=== PATIENT | male | born 1960 | race Caucasian/White ===

== ENCOUNTER 2017-11-25 10:50 | Emergency (ER) | payer SELFPAY ==
[2017-11-25] MEDS ORDERED: VANCOMYCIN PER PHARMACY MC ×2 (11:15)
[2017-11-25 11:32] LABS: ADD MAN DIFF? NO
[2017-11-25 11:35] LABS: BASO # 0.1 x10^3/uL (0.0-0.2); BASO % 1 % (0-3); EOS # 0.1 x10^3/uL (0.0-0.7); EOS % 1 % (0-3); HEMATOCRIT 44.2 % (39.0-53.0); HEMOGLOBIN 14.8 g/dL (13.0-17.5); LYMPH # 0.9 x10^3/uL (1.0-4.8); LYMPH % 7 % (24-48); MEAN CORPUSCULAR HEMOGLOBIN 31 pg (25-35); MEAN CORPUSCULAR HGB CONC 34 g/dL (31-37); MEAN CORPUSCULAR VOLUME 93 fL (79-100); MONO # 1.8 x10^3/uL (0.0-1.1); MONO % 14 % (0-9); NEUT # 10.2 x10^3uL (1.8-7.7); NEUT % 77 % (31-73); PLATELET COUNT 269 x10^3/uL (140-400); RED BLOOD COUNT 4.76 x10^6/uL (4.30-5.70); RED CELL DISTRIBUTION WIDTH 14.5 % (11.5-14.5); WHITE BLOOD COUNT 13.2 x10^3/uL (4.0-11.0)
[2017-11-25 11:50] LABS: ANION GAP 6 (6-14); BLOOD UREA NITROGEN 13 mg/dL (8-26); BUN/CREATININE RATIO 16 (6-20); CALCIUM 8.4 mg/dL (8.5-10.1); CARBON DIOXIDE 28 mmol/L (21-32); CHLORIDE 103 mmol/L (98-107); CREATININE 0.8 mg/dL (0.7-1.3); GFR 99.3; GLUCOSE 97 mg/dL (70-99); POTASSIUM 3.8 mmol/L (3.5-5.1); SODIUM 137 mmol/L (136-145)
[2017-11-25 11:56] LABS: ALBUMIN/GLOBULIN RATIO 0.7 (1.0-1.7); ALK PHOS 65 U/L (46-116); ALT (SGPT) 24 U/L (16-63); AST (SGOT) 16 U/L (15-37); TOTAL BILIRUBIN 0.4 mg/dL (0.2-1.0); TOTAL PROTEIN 7.1 g/dL (6.4-8.2)
[2017-11-25 11:58] LABS: LACTIC ACID 1.2 mmol/L (0.4-2.0)
[2017-11-25] MEDS: IV NORMAL SALINE 1000ML BAG 1,000 ML IV ×2 (12:03)
[2017-11-25] MEDS: VANCOMYCIN 2 GM in IV DEXTROSE 5% 500 ML IV (12:04)
[2017-11-25] MEDS: LIDOCAINE WITH 8.4% SOD BICARB 3 ML DISP.SYRIN. INJ ×2 (13:00)
== END 2017-11-25 15:55 | disposition home or self-care (01) ==
LOC: ER 15:55
DX: L02.512 Cutaneous abscess of left hand (principal); F20.9 Schizophrenia, unspecified; F31.9 Bipolar disorder, unspecified
CPT/HCPCS: 26010; 36415; 80053; 83605; 85025; 87040; 96365; 96366; 99285-25; J3370; J7030